=== PATIENT | male | born 1975 | race Caucasian/White ===

== ENCOUNTER 2019-02-20 04:09 | Emergency (ER) | payer SELFPAY ==
[~2019-02-20] VITALS: Ht 172.7 cm; Wt 73.0 kg
[2019-02-20 04:11] VITALS: BP 133/81
== END 2019-02-20 04:50 | disposition home or self-care (01) ==
LOC: ER 04:20
DX: F10.129 Alcohol abuse with intoxication, unspecified (principal); E11.9 Type 2 diabetes mellitus without complications; F15.10 Other stimulant abuse, uncomplicated; F17.200 Nicotine dependence, unspecified, uncomplicated; Y90.9 Presence of alcohol in blood, level not specified
CPT/HCPCS: 99283